=== PATIENT | male | born 1970 | race Caucasian/White ===

== ENCOUNTER 2025-06-06 10:10 | Emergency (ER) | payer BC, SELFPAY ==
[2025-06-06 10:13] VITALS: BP 142/89
--- NOTE | 2025-06-06 11:14 | ED.SKININJ ---
HPI-Injury
General
Chief Complaint: Eye Problems
Source: patient
Exam Limitations: none
Time Seen by Provider: 06/06/25 10:52
Nursing documentation reviewed up to this point in time: agreed with
History of Present Illness-Injury
Initial Injury comments:
55 yo male states while at work at [employer] yesterday developed mild irritation and watering of the left eye. He has been rubbing it and this a.m. woke up with crustiness around the eye. Denies eye pain, change in vision. Does not wear glasses or
contacts. No recent URI symptoms. No hx seasonal allergies. Now with 'irritation' and swelling of upper lid and redness of the eye
Past History
Past History
ED Past Medical History: None
ED Past Surgical History: None
Social History
Tobacco: Non-smoker
Alcohol: Occasional
Drug: None
Personal: Single
Living: with family
Employment: Employed
Review of Systems
Review of Systems
Allergies reviewed?: Yes
All Other Systems: ROS reviewed and negative except as documented in HPI and ROS
Phy Exam
Physical Exam
Physical Exam:
PHYSICAL EXAMINATION:
General: no apparent distress, not acutely ill
Neuro: alert and oriented.
Psychiatric: well kept. interactive and cooperative
Musculoskeletal: Moves with ease
Skin: Warm, pink.
Eye Exam
Eye Exam: PERRL, EOMI, cornea clear, conjunctiva normal (L conjunctiva injected, watery discharg), globe normal, visual acuity normal and other (Fluorescein stain reveals no corneal abrasion. Lid everted, no FB noted.)
Course
Orders/Labs/Results
Orders:
Orders
06/06/25 11:14
Gentamicin [Genoptic 0.3% Eye Drops] See Dose Instructions OPHTH NOW STA
Vital Signs
Initial and Last Documented VS:
Initial Vital Signs
Temp Pulse Resp BP Pulse Ox
98.5 F 77 16 142/89 99
06/06/25 10:13 06/06/25 10:13 06/06/25 10:13 06/06/25 10:13 06/06/25 10:13
Last Documented Vital Signs
Temp Pulse Resp BP Pulse Ox
98.5 F 77 16 142/89 99
06/06/25 10:13 06/06/25 10:13 06/06/25 10:13 06/06/25 10:13 06/06/25 11:20
MDM/Problems Addressed
Differential Diagnosis Includes:
allergic vs bacterial conjunctivitis, corneal abrasion, FB eye
MDM/Problems Addressed:
55 yo male states while at work at [employer] yesterday developed mild irritation and watering of the left eye. He has been rubbing it and this a.m. woke up with crustiness around the eye. Denies eye pain, change in vision. Does not wear glasses or
contacts. No recent URI symptoms. No hx seasonal allergies. Now with 'irritation' and swelling of upper lid and redness of the eye
Watery discharge, conjunctiva mildly injected, mild swelling upper eyelid.
Visual acuity noted
No corneal abrasion or FB on exam.
Will treat as bacterial with antibiotic eye drops.
Referred to ophthalmology, return here over weekend if needed
*Pulse Oximetry
SaO2: 99
Oxygen Mode of Delivery: Room air
Patient hypoxic: not evaluated
*Critical Care Note
Total Time (30-74mins, 75-104mins- exclusive of procedures): Not Applicable
ED Attending Note
-
Portions of this chart may have been created with voice recognition software.� Occasional wrong word or��sound alike� substitutions may have occurred due to the inherent limitations of voice recognition software.
Discharge Plan
Departure
Patient Disposition: Home (Routine Discharge)
Date of Disposition: 06/06/25
Time of Disposition: 11:22
Patient with high blood pressure during this ER visit?: No
Condition: Good
Discharge Problem:
Conjunctivitis
Instructions: Conjunctivitis (Pinkeye) (DC)
Prescriptions:
No Action
meclizine 25 MG tablet
25 mg PO Q8HPRN PRN (Reason: nausea or vertigo) Qty: 12 0RF
Rx Instructions:
Do not take on same day that you are going to physical therapy.
Referrals:
UNKNOWN - PT NOT,INTERVIEWE [Family Provider]
Activity Restrictions/Additional Instructions:
As we discussed, this is most likely pinkeye. Use the Gentamycin eye drops as follows: 1-2 drops in left eye 4 times a day for 5-7 days until the eye is clear.
Return here over the weekend for loss of vision, increasing pain, swelling redness of the eye.
Cool compress may help.
See the eye doctor next week if not better by Monday
Interventions
Interventions:
*Risk Screen - Suicide Last Done: 06/06/25 10:13
*General Assessment Last Done: 06/06/25 11:05
*Neglect/Abuse Screening Last Done: 06/06/25 10:13
*ED COVID-19 Vaccine History Last Done: 06/06/25 10:51
*ED Influenza Vaccine History Last Done: 06/06/25 10:51
[facility] Risk Assessment Tool Last Done: 06/06/25 11:03
*Nursing Disposition Last Done: 06/06/25 11:54
Discharge Date and Time
Discharge Date/Time: 06/06/25 11:55
Print Language: CONGOLESE
[2025-06-06] MEDS: GENOPTIC 0.3% EYE DROPS 1 DROP OPHTH (11:27)
== END 2025-06-06 11:55 | disposition home or self-care (01) ==
LOC: EMR 10:10
PROVIDERS: EMERGENCY PHYSICIAN Emergency Medicine
DX: H10.9 Unspecified conjunctivitis (principal)
CPT/HCPCS: 99283